=== PATIENT | male | born 1990 | race Caucasian/White ===

== ENCOUNTER 2021-07-06 21:50 | Emergency (ER) | payer BC ==
--- NOTE | 2021-07-06 23:13 | CR ---
INDICATION: Injured left knee, pain TECHNIQUE: Knee radiograph 3 views left COMPARISON: None FINDINGS: Bone: No acute fractures or aggressive bone lesions are identified. There is a 1.2 cm bone island in the proximal tibia. Joint: The joint spaces of the medial, lateral, and patellofemoral compartments are unremarkable. No significant knee effusion is seen. Soft tissue: Unremarkable. No radiopaque foreign bodies are seen. IMPRESSION: 1. No acute osseous injuries or abnormalities are noted. Dictated by: Basilio Marion MD @ 07/06/2021 23:11:46 (Electronically Signed)
[2021-07-06] MEDS ORDERED: Ibuprofen 600 MG Tab PO ONE (23:41)
--- NOTE | 2021-07-06 23:48 | EDM.PDOC ---
ED HPI GENERAL MEDICAL PROBLEM - General Chief Complaint: Lower Extremity Injury/Pain Stated Complaint: LT KNEE PAIN Time Seen by Provider: 07/06/21 23:40 - History of Present Illness INITIAL COMMENTS - FREE TEXT/NARRATIVE: HISTORY AND PHYSICAL: History of present illness: This is a 30-year-old gentleman who presents ER today secondary to pain to his left knee. Patient reports that started approximately 2 days ago. 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 Patient has any fevers, shakes, chills, nausea, vomiting, diarrhea. Patient was able to ambulate on it. Patient has any swelling. Patient reports has been putting heat on it for the last couple days. Review of systems: As per history of present illness and below otherwise all systems reviewed and negative. Past medical history: As per history of present illness and as reviewed below otherwise noncontributory. Surgical history: As per history of present illness and as reviewed below otherwise noncontributory. Social history: No reported history of drug abuse. Family history: As per history of present illness and as reviewed below otherwise noncontributory. Physical exam: This patient was seen and evaluated during the 2019 SARS-CoV-2 novel coronavirus pandemic period. Community viral transmission is ongoing at time of this encounter and the emergency department is operating under pandemic response procedures. Constitutional: Patient is oriented to person, place, and time. Appears well- developed and well-nourished. No distress. HEENT: Moist mucous membranes Head: Normocephalic and atraumatic Eyes: Right eye exhibits no discharge. Left eye exhibits no discharge. No scleral icterus Neck: Normal range of motion. No tracheal deviation present. Cardiovascular: Normal rate and regular rhythm. Pulmonary: Effort normal, no respiratory distress. Abdominal: No distention Musculoskeletal: Normal range of motion Neurologic: Alert and oriented to person, place and time. Skin: [place], warm and dry. Psychiatric: Normal mood and affect. Behavior is normal. Judgment and thought content normal. Nursing note and vital signs have been reviewed Left knee was tenderness to palpation to the medial aspect. Patient has no ligamentous laxity. Patient has no effusion. Patella is nonballotable. No erythema or warmth no evidence of cellulitis or septic joint. Diagnostics: X-ray of left knee reveals no acute fracture or other abnormalities. Therapeutics: Knee immobilizer/ibuprofen Assessment and plan: 30-year-old who presents ER today with left knee pain most likely secondary to repetitive motion. DME note: Patient was placed in a knee immobilizer to assist with pain management and also to this was healing of ligamentous injury. Patient will need to have the knee immobilizer in place for 2 weeks. New modular play secondary to ligamentous strain/injury by placing the knee immobilizer this will assist with immobilizing the knee to assist with healing of the ligamentous injury. Definitive disposition and diagnosis as appropriate pending reevaluation and review of above. Treatments [employer] REPA[employer]ER: Reports: NSAIDS left knee Pain Score (Numeric/FACES): 7 - Related Data Allergies Allergy/AdvReac Type Severity Reaction Status Date / Time No Known Allergies Allergy Verified 07/06/21 22:12 Home Meds: Home Meds Ibuprofen 600 mg PO Q6HR PRN #30 tablet 07/06/21 [Rx] Past Medical History - Past Health History Medical/Surgical History: Denies Medical/Surgical History HEENT History: Reports: None Cardiovascular History: Reports: None Respiratory History: Reports: None Gastrointestinal History: Reports: None Other Genitourinary History: "acute kidney injury Musculoskeletal History: Reports: None Neurological History: Reports: None Psychiatric History: Reports: None Endocrine/Metabolic History: Reports: None Hematologic History: Reports: None Immunologic History: Reports: None Oncologic (Cancer) History: Reports: None Dermatologic History: Reports: None - Infectious Disease History Infectious Disease History: Reports: Novel Coronavirus - Past Surgical History Head Surgeries/Procedures: Reports: None Social & Family History - Family History Family Medical History: No Pertinent Family History - Tobacco Use Tobacco Use Status *Q: Current Every Day Tobacco User Years of Tobacco use: 15 Packs/Tins Daily: 1.5 Second Hand Smoke Exposure: No - Caffeine Use Caffeine Use: Reports: None - Recreational Drug Use Recreational Drug Use: No Review of Systems - Review of Systems Review Of Systems: See Below ED EXAM, GENERAL - Physical Exam Exam: See Below Course - Vital Signs Last Recorded V/S: Last Vital Signs Temp 96.5 F L 07/06/21 22:07 Pulse 84 07/06/21 22:07 Resp 18 07/06/21 22:07 BP 146/67 H 07/06/21 22:07 Pulse Ox 98 07/06/21 22:07 - Orders/Labs/Meds Orders: Active Orders 24 hr Category Date Time Status Ibuprofen [Motrin] Med 07/06/21 23:41 Once 600 mg PO ONETIME ONE DME for Discharge [COMM] Stat Oth 07/06/21 23:41 Ordered Departure - Departure Time of Disposition: 23:46 Disposition: Home, Self-Care 01 Condition: Good Clinical Impression: Strain of left knee - Discharge Information Instructions: Knee Sprain, Adult, [id number], How to Use a Knee Immobilizer Referrals: PCP,None [Primary Care Provider] - Additional Instructions: You were seen and evaluated in ER today secondary to pain to your left knee which is likely a strain secondary to repetitive movement. Will be placed in a knee immobilizer to help with the discomfort and help with healing of the ligament strain. You can take ibuprofen 600 mg every 6 hours as needed for pain and discomfort. The following information is given to patients seen in the emergency department who are being discharged to home. This information is to outline your options for follow-up care. We provide all patients seen in our emergency department with a follow-up referral. The need for follow-up, as well as the timing and circumstances, are variable depending upon the specifics of your emergency department visit. If you don't have a primary care physician on staff, we will provide you with a referral. We always advise you to contact your personal physician following an emergency department visit to inform them of the circumstance of the visit and for follow-up with them and/or the need for any referrals to a consulting speci alist. The emergency department will also refer you to a specialist when appropriate. This referral assures that you have the opportunity for follow-up care with a specialist. All of these measure are taken in an effort to provide you with optimal care, which includes your follow-up. Under all circumstances we always encourage you to contact your private physician who remains a resource for coordinating your care. When calling for follow-up care, please make the office aware that this follow-up is from your recent emergency room visit. If for any reason you are refused follow-up, please contact the [facility] Emergency Department at and asked to speak to the emergency department charge nurse. [facility] [address] [place] [id number] [facility] [address] [place] [id number] Sepsis Event Note (ED) - Evaluation Sepsis Screening Result: No Definite Risk - Focused Exam Vital Signs: Vital Signs Temp Pulse Resp BP Pulse Ox 07/06/21 22:07 96.5 F L 84 18 146/67 H 98 - My Orders Last 24 Hours: My Active Orders 07/06/21 23:41 Ibuprofen [Motrin] 600 mg PO ONETIME ONE DME for Discharge [COMM] Stat - Assessment/Plan Last 24 Hours: My Active Orders 07/06/21 23:41 Ibuprofen [Motrin] 600 mg PO ONETIME ONE DME for Discharge [COMM] Stat
== END 2021-07-06 23:56 | disposition home or self-care (01) ==
LOC: MW.ED 21:50
DX: S86.812A Strain of other muscle(s) and tendon(s) at lower leg level, left leg, initial encounter (principal); Z86.16 Personal history of COVID-19; Z72.0 Tobacco use; X50.0XXA Overexertion from strenuous movement or load, initial encounter; Y99.0 Civilian activity done for income or pay
CPT/HCPCS: 73562; 99283; A9270

== ENCOUNTER 2021-12-14 21:05 | Emergency (ER) | payer BC | END 2021-12-14 22:15 | disposition home or self-care (01) | LOC: MW.ED 21:05 | DX: M79.89 Other specified soft tissue disorders (principal); Z86.16 Personal history of COVID-19 | CPT/HCPCS: 73610-26-LT; 73610-LT; 99283 ==

== ENCOUNTER 2023-03-30 08:50 | Emergency (ER) | payer BC | END 2023-03-30 10:27 | disposition home or self-care (01) | LOC: MW.ED 08:50 | DX: S91.051A Open bite, right ankle, initial encounter (principal); Z86.16 Personal history of COVID-19; W54.0XXA Bitten by dog, initial encounter; Y93.01 Activity, walking, marching and hiking | CPT/HCPCS: 99283 ==

== ENCOUNTER 2023-04-05 21:57 | Observation (INO) | payer BC ==
[2023-04-06] MEDS ORDERED: Sodium Chloride 0.9% 1,000 ML IV ONE (00:57)
[2023-04-06] MEDS ORDERED: metroNIDAZOLE/Normal Saline 500 MG in Premix Bag 1 BAG IV ONE ×2 (00:57→22:07)
[2023-04-06] MEDS ORDERED: Sodium Chloride 0.9% 10 ML Syringe FLUSH PRN (00:57)
[2023-04-06] MEDS ORDERED: cefTRIAXone 1 GM Vial IM ONE (00:57)
[2023-04-06] MEDS ORDERED: Sodium Chloride 0.9% 2.5 ML Syringe FLUSH PRN (00:57)
[2023-04-06] MEDS ORDERED: HYDROmorphone 1 MG/ML Syringe IVPUSH ONE (01:02)
[2023-04-06] MEDS ORDERED: Lidocaine 1% PF 2 ML SDV INJECT ONE (01:10)
[2023-04-06 01:17] LABS: BASOPHILS ABSOLUTE AUTO 0.1 K/uL (0.0-0.1); BASOPHILS PERCENT AUTO 1.1 % (0.0-1.5); EOSINOPHILS ABSOLUTE AUTO 0.6 K/uL (0.0-0.7); EOSINOPHILS PERCENT AUTO 5.9 % (0.0-7.0); LYMPHOCYTES PERCENT AUTO 29.2 % (16.0-40.0); MEAN CORPUSCULAR HEMOGLOBIN 26.4 pg (27.0-32.0); MEAN CORPUSCULAR HGB CONC 32.6 g/dL (31.0-37.0); MONOCYTES PERCENT AUTO 9.6 % (0.0-15.0); NEUTROPHILS ABSOLUTE AUTO 5.5 K/uL (1.4-5.7); NEUTROPHILS PERCENT AUTO 54.2 % (48.0-80.0); NRBC ABSOLUTE 0 K/uL; PLATELET COUNT,PLT 314 K/uL (150-400); RED BLOOD CELL COUNT 5.68 M/uL (4.50-5.90); WHITE BLOOD CELL COUNT,WBC 10.13 K/uL (4.0-11.0)
[2023-04-06 01:28] LABS: INR 0.94 (0.86-1.11)
[2023-04-06 01:40] LABS: A/G RATIO 0.9 (0.9-1.6); ALBUMIN 3.8 g/dL (3.4-5.0); BILIRUBIN TOTAL 0.3 mg/dL (0.2-1.0); CALCIUM 9.4 mg/dL (8.5-10.1); CARBON DIOXIDE,CO2 27.3 mmol/L (21.0-32.0); CREATININE 1.3 mg/dL (0.8-1.3); EST CRCL DRUG DOSING (CG) 92.19 mL/min; POTASSIUM,K 4.3 mmol/L (3.5-5.1); PROTEIN TOTAL,TP 7.9 g/dL (6.4-8.2)
[2023-04-06] MEDS ORDERED: Iopamidol 755 MG/ML 500 ML Multipack Bottle IVPUSH STA (02:21)
[2023-04-06] MEDS ORDERED: Aspirin 325 MG Tab PO ONE (03:11)
[2023-04-06] MEDS ORDERED: Acetaminophen 325 MG Tab PO PRN (03:57)
[2023-04-06] MEDS: metroNIDAZOLE/Normal Saline 500 MG in Premix Bag 1 BAG IV SCH ×2 (09:32→16:52)
[2023-04-06] MEDS ORDERED: Enoxaparin 40 MG/0.4 ML Syringe SUBCUT SCH (11:15)
[2023-04-06] MEDS ORDERED: cefTRIAXone 2 GM in Sodium Chloride 0.9% 50 ML IV ONE (21:00)
[2023-04-07] MEDS ORDERED: metroNIDAZOLE/Normal Saline 500 MG in Premix Bag 1 BAG IV ONE (01:00)
[2023-04-07] MEDS ORDERED: cefTRIAXone 2 GM in Sodium Chloride 0.9% 50 ML IV SCH (01:00)
[2023-04-07] MEDS ORDERED: Pantoprazole 40 MG Tab.CR PO SCH (09:00)
== END 2023-04-06 23:45 | disposition home or self-care (01) ==
LOC: MW.ED 21:57 → MW.MS 04-06 03:07
PROVIDERS: ADMIT Internal Medicine; ATTEND Internal Medicine
DX: L03.115 Cellulitis of right lower limb (principal); I80.01 Phlebitis and thrombophlebitis of superficial vessels of right lower extremity; Z79.899 Other long term (current) drug therapy; W54.0XXA Bitten by dog, initial encounter
CPT/HCPCS: 36415; 73701-26-RT; 73701-RT; 80053; 83605; 84145; 85025; 85610; 87040; 93971-26-RT; 93971-RT; 96365; 96366; 96367; 96372; 96375; 99284-25; 99285; A9270-GY; G0378; J0696; J1170; J1650; J3490; J7030; Q9967